=== PATIENT | female | born 1975 | race Two or more races ===

== ENCOUNTER 2023-01-01 17:32 | Emergency (ER) | payer OTHER ==
[~2023-01-01] VITALS: Ht 157.5 cm; Wt 68.0 kg
[~2023-01-01 17:32] MED LIST: FLUO25PO10 MC
[2023-01-01] MEDS ORDERED: IBUPROFEN 400 MG TABLET PO ONE (18:00)
[2023-01-01] MEDS ORDERED: IBUPROFEN 400 MG TABLET ONE (18:11)
--- NOTE | 2023-01-01 18:40 | NUR ---
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
--- NOTE | 2023-01-01 19:00 | NUR ---
Patient discharged to home in stable condition. Written and verbal after care instructions given. Patient verbalizes understanding of instruction.
[2023-01-01 19:39] VITALS: BP 138/88
== END 2023-01-01 19:39 | disposition home or self-care (01) ==
LOC: ER 17:58
DX: M25.511 Pain in right shoulder (principal); F41.9 Anxiety disorder, unspecified; F32.A Depression, unspecified; Z88.0 Allergy status to penicillin
CPT/HCPCS: 73030-TC